=== PATIENT | female | born 1945 | race Native Hawaiian/Other Pacific Islander ===

== ENCOUNTER 2018-06-26 09:28 | Inpatient (IN) | payer MEDICARE ==
[2018-06-26] MEDS ORDERED: Dextrose 50% SYRINGE Inj (50 ml) ONE (09:35)
[2018-06-26] MEDS ORDERED: Dextrose 50% SYRINGE Inj (50 ml) IVP STA (09:43)
--- NOTE | 2018-06-26 09:44 | C.PDOC ---
History Of Present Illness 72 year old female with a history of diabetes presents to the ED for evaluation of near syncope today. The patient reports she was visiting her in the hospital when she suddenly began to feel dizzy and weak causing her to fall and hit the back of her head. Upon ED arrival the patient was hypoglycemic, 37. She denies LOC, other injuries, and any other associated symptoms. Time Seen by Provider: 06/26/18 09:29 Chief Complaint (Nursing): Dizziness/Lightheaded History Per: Patient History/Exam Limitations: no limitations Onset/Duration Of Symptoms: Hrs Current Symptoms Are (Timing): Still Present Number Of Syncopal Episodes: 1 Fall Associated With With Symptoms: Yes Recent travel outside of the [place]: No Past Medical History Reviewed: Historical Data, Nursing Documentation, Vital Signs Vital Signs: Last Vital Signs Temp Pulse 55 L 06/26/18 09:34 Resp 17 06/26/18 09:34 BP 140/55 L 06/26/18 09:34 Pulse Ox 100 06/26/18 09:34 - Medical History PMH: HTN, Hypercholesterolemia Surgical History: CABG Family History: States: Unknown Family Hx - Social History Hx Alcohol Use: No Hx Substance Use: No - Immunization History Hx Tetanus Toxoid Vaccination: No Hx Influenza Vaccination: No Hx Pneumococcal Vaccination: No Review Of Systems Except As Marked, All Systems Reviewed And Found Negative. Constitutional: Negative for: Other ((-) other injuries. ) Musculoskeletal: Positive for: Other (hit the back of the head. ) Neurological: Positive for: Weakness, Dizziness. Negative for: Other ((-) LOC. ) Physical Exam - Physical Exam Appears: Non-toxic, No Acute Distress, Other (generalized weakness. ) Skin: Warm, Dry Head: Atraumatic, Normacephalic Eye(s): bilateral: Normal Inspection Oral Mucosa: Moist Neck: Normal ROM, Trachea Midline, No Midline Cervical Tenderness, No Paracervical Tenderness Chest: Symmetrical Cardiovascular: Rhythm Regular, No Murmur Respiratory: Normal Breath Sounds, No Rales, No Rhonchi, No Wheezing Gastrointestinal/Abdominal: Normal Exam, Soft, No Tenderness Extremity: Normal ROM (x4) Neurological/Psych: Oriented x3, Normal Speech, Normal Cognition ED Course And Treatment - Laboratory Results Result Diagrams: 06/26/18 09:53 06/26/18 09:53 ECG: Interpreted By Me, Viewed By Me ECG Rhythm: Sinus Bradycardia Interpretation Of ECG: T Wave inversion at lateral leads. No ST elevations. Rate From EC O2 Sat by Pulse Oximetry: 100 (RA) Pulse Ox Interpretation: Normal - CT Scan/US CT Head Other Rad Studies (CT/US): Read By Radiologist CT/US Interpretation: FINDINGS: HEMORRHAGE: No intracranial hemorrhage. BRAIN: Good corticomedullary differentiation is seen. Proportional, diffuse expansion of the ventriculosulcal and cisternal spaces is appreciated with white matter lucency compatible with diffuse cerebral atrophy and chronic micr oangiopathy. No suspicious extra-axial fluid collection is identified and the midline brain anatomy appears grossly nonfocal as imaged. There is no mass effect throughout. VENTRICLES: Unremarkable. No hydrocephalus. CALVARIUM: No destructive bony lesion or displaced fracture identified including through the skullbase. PARANASAL SINUSES: Unremarkable as visualized. No significant inflammatory changes. MASTOID AIR CELLS: Unremarkable as visualized. No inflammatory changes. OTHER FINDINGS: None. IMPRESSION: Age-appropriate age- related degenerative change are identified without definite acute intracranial findings as discussed above. Follow-up CT or MRI are available if clinically warranted. Medical Decision Making Medical Decision Making: Initial plan: -CT Head w/o contrast. -EKG -Blood sent. -Glucose POC -Dextrose Progress/update: 11:04am: Spoke with Dr. Franco Negron who has agreed to admit the patient to telemetry. Disposition Discussed With : Tyra Negron Doctor Will See Patient In The: Hospital Counseled Patient/Family Regarding: Studies Performed, Diagnosis - Disposition Disposition: HOSPITALIZED Disposition Time: 11:08 Condition: STABLE - POA Present On Arrival: None - Clinical Impression Clinical Impression: Near syncope, Hypoglycemia, Abnormal EKG - Scribe Statement The provider has reviewed the documentation as recorded by the Scribe (Munira Ortiz) Provider Attestation: All medical record entries made by the Scribe were at my direction and personally dictated by me. I have reviewed the chart and agree that the record accurately reflects my personal performance of the history, physical exam, medical decision making, and the department course for this patient. I have also personally directed, reviewed, and agree with the discharge instructions and disposition.
[2018-06-26 09:56] LABS: BASO % 0.7 % (0.0-2.0); EOS # 0.1 K/uL (0.0-0.7); HEMOGLOBIN 11.6 g/dL (11.0-16.0); LYMPH # 2.1 K/uL (1.0-4.3); LYMPH % 33.9 % (20.0-40.0); MEAN CELL VOLUME 95.7 fL (81.0-99.0); MEAN CORPUSCULAR HEMOGLOBIN 31.6 pg (27.0-31.0); MONO # 0.6 K/uL (0.0-0.8); MONO % 9.3 % (0.0-10.0); NEUT # 3.4 K/uL (1.8-7.0); NEUT % 55.1 % (50.0-75.0); RBC 3.68 Mil/uL (3.80-5.20); RED CELL DISTRIBUTION WIDTH 14.5 % (11.5-14.5); WHITE BLOOD COUNT 6.1 K/uL (4.8-10.8)
[2018-06-26 10:09] LABS: ALB/GLOB RATIO 1.4 (1.0-2.1); ALBUMIN 4.7 g/dL (3.5-5.0); BLOOD UREA NITROGEN 29 mg/dL (7-17); CALCIUM 10.2 mg/dl (8.6-10.4); GFR NON-AFRICAN AMERICAN > 60
[2018-06-26 10:14] LABS: ALT/SGPT 16 U/L (9-52); AST/SGOT 46 U/L (14-36)
--- NOTE | 2018-06-26 11:29 | CT ---
Date of service: 06/26/2018 PROCEDURE: CT HEAD WITHOUT CONTRAST. HISTORY: trauma COMPARISON: None available. TECHNIQUE: Axial computed tomography images were obtained through the head/brain without intravenous contrast. Radiation dose: Total exam DLP = 1131.56 mGy-cm. This CT exam was performed using one or more of the following dose reduction techniques: Automated exposure control, adjustment of the mA and/or kV according to patient size, and/or use of iterative reconstruction technique. FINDINGS: HEMORRHAGE: No intracranial hemorrhage. BRAIN: Good corticomedullary differentiation is seen. Proportional, diffuse expansion of the ventriculosulcal and cisternal spaces is appreciated with white matter lucency compatible with diffuse cerebral atrophy and chronic microangiopathy. No suspicious extra-axial fluid collection is identified and the midline brain anatomy appears grossly nonfocal as imaged. There is no mass effect throughout. VENTRICLES: Unremarkable. No hydrocephalus. CALVARIUM: No destructive bony lesion or displaced fracture identified including through the skullbase. PARANASAL SINUSES: Unremarkable as visualized. No significant inflammatory changes. MASTOID AIR CELLS: Unremarkable as visualized. No inflammatory changes. OTHER FINDINGS: None. IMPRESSION: Age-appropriate age-related degenerative change are identified without definite acute intracranial findings as discussed above. Follow-up CT or MRI are available if clinically warranted.
--- NOTE | 2018-06-26 15:42 | CP.PCM.HP ---
Past Patient History - Past Social History Smoking Status: Never Smoked - CARDIAC Hx Hypercholesterolemia: Yes Hx Hypertension: Yes - ENDOCRINE/METABOLIC Hx Diabetes Mellitus Type 2: Yes - PSYCHIATRIC Hx Substance Use: No - SURGICAL HISTORY Hx Coronary Artery Bypass Graft: Yes - ANESTHESIA Hx Anesthesia: Yes Meds Allergies/Adverse Reactions: Allergies Allergy/AdvReac Type Severity Reaction Status Date / Time aspirin Allergy Verified 06/26/18 09:41 Physical Exam - Constitutional Appears: Well - Head Exam Head Exam: ATRAUMATIC, NORMAL INSPECTION, NORMOCEPHALIC - Eye Exam Eye Exam: EOMI, Normal appearance, PERRL Pupil Exam: NORMAL ACCOMODATION, PERRL - ENT Exam ENT Exam: Mucous Membranes Moist, Normal Exam - Neck Exam Neck exam: Positive for: Normal Inspection - Respiratory Exam Respiratory Exam: Decreased Breath Sounds - Cardiovascular Exam Cardiovascular Exam: REGULAR RHYTHM, +S1, +S2 - GI/Abdominal Exam GI & Abdominal Exam: Diminished Bowel Sounds, Soft - Rectal Exam Rectal Exam: Deferred Results - Vital Signs Recent Vital Signs: Last Vital Signs Temp 97.9 F 06/26/18 13:25 Pulse 62 06/26/18 13:25 Resp 20 06/26/18 13:25 BP 134/59 L 06/26/18 13:25 Pulse Ox 98 06/26/18 13:25 - Labs Result Diagrams: 06/26/18 09:53 06/26/18 09:53 Labs: Laboratory Results - last 24 hr 06/26/18 06/26/18 06/26/18 09:31 09:32 09:53 WBC 6.1 RBC 3.68 L Hgb 11.6 Hct 35.2 MCV 95.7 MCH 31.6 H MCHC 33.0 RDW 14.5 Plt Count 290 MPV 9.0 Neut % (Auto) 55.1 Lymph % (Auto) 33.9 Clarke % (Auto) 9.3 Eos % (Auto) 1.0 Baso % (Auto) 0.7 Neut # (Auto) 3.4 Lymph # (Auto) 2.1 Clarke # (Auto) 0.6 Eos # (Auto) 0.1 Baso # (Auto) 0.0 Sodium Potassium Chloride Carbon Dioxide Anion Gap BUN Creatinine Est GFR ( Amer) Est GFR (Non-Af Amer) POC Glucose (mg/dL) 37 L* 45 L Random Glucose Calcium Total Bilirubin AST ALT Alkaline Phosphatase Troponin I Total Protein Albumin Globulin Albumin/Globulin Ratio 06/26/18 06/26/18 06/26/18 09:53 09:54 12:44 WBC RBC Hgb Hct MCV MCH MCHC RDW Plt Count MPV Neut % (Auto) Lymph % (Auto) Clarke % (Auto) Eos % (Auto) Baso % (Auto) Neut # (Auto) Lymph # (Auto) Clarke # (Auto) Eos # (Auto) Baso # (Auto) Sodium 139 Potassium 4.7 Chloride 104 Carbon Dioxide 23 Anion Gap 16 BUN 29 H Creatinine 0.9 Est GFR ( Amer) > 60 Est GFR (Non-Af Amer) > 60 POC Glucose (mg/dL) 174 H 123 H Random Glucose 114 H Calcium 10.2 Total Bilirubin 0.6 AST 46 H ALT 16 Alkaline Phosphatase 28 L Troponin I 0.0160 Total Protein 8.0 Albumin 4.7 Globulin 3.3 Albumin/Globulin Ratio 1.4
[2018-06-26] MEDS ORDERED: (Novolog) Insulin Aspart, Recombinant 100 u/ml 10 ml vial SC SCH (16:30)
[2018-06-26] MEDS: Metoprolol Succinate 100 mg XL Tab PO SCH (21:45)
[2018-06-27] MEDS: Metoprolol Succinate 100 mg XL Tab PO SCH ×2 (09:39→22:28)
[2018-06-27] MEDS ORDERED: GlipiZIDE 10 mg SR Tab PO SCH (10:00)
--- NOTE | 2018-06-27 17:10 | CP.PCM.PN ---
Subjective - Date & Time of Evaluation Date of Evaluation: 06/27/18 Time of Evaluation: 11:30 - Subjective Subjective: clinically same Objective - Vital Signs/Intake and Output Vital Signs (last 24 hours): Temp Pulse Resp BP Pulse Ox 98.1 F 57 L 20 166/70 H 100 06/27/18 07:00 06/27/18 10:00 06/27/18 07:00 06/27/18 07:00 06/27/18 12:14 Intake and Output: 06/27/18 06/27/18 06:59 18:59 Intake Total 500 Balance 500 - Medications Medications: Current Medications Acetaminophen (Tylenol 325mg Tab) 650 mg PO Q6 PRN PRN Reason: Pain, moderate (4-7) Last Admin: 06/26/18 14:20 Dose: 650 mg Allopurinol (Zyloprim) 300 mg PO DAILY [facility] Last Admin: 06/27/18 09:38 Dose: Not Given Amlodipine Besylate (Norvasc) 5 mg PO DAILY [facility] Last Admin: 06/27/18 09:39 Dose: 5 mg Clopidogrel Bisulfate (Plavix) 75 mg PO DAILY [facility] Last Admin: 06/27/18 09:38 Dose: 75 mg Glipizide (Glucotrol Xl) 10 mg PO DAILY [facility] Last Admin: 06/27/18 09:38 Dose: Not Given Insulin Aspart (Novolog) 0 unit SC [facility]; Protocol Last Admin: 06/26/18 16:36 Dose: Not Given Isosorbide Mononitrate (Imdur Er) 30 mg PO DAILY [facility] Last Admin: 06/27/18 09:38 Dose: 30 mg Lisinopril (Zestril) 20 mg PO DAILY [facility] Last Admin: 06/27/18 11:03 Dose: 20 mg Metoprolol Succinate (Toprol Xl) 100 mg PO BID [facility] Last Admin: 06/27/18 09:39 Dose: Not Given Rosuvastatin Calcium (Crestor) 5 mg PO [facility] Last Admin: 06/26/18 21:45 Dose: 5 mg - Labs Labs: 06/26/18 09:53 06/26/18 09:53 - Constitutional Appears: Well - Head Exam Head Exam: ATRAUMATIC, NORMAL INSPECTION, NORMOCEPHALIC - Eye Exam Eye Exam: EOMI, Normal appearance, PERRL Pupil Exam: NORMAL ACCOMODATION, PERRL - ENT Exam ENT Exam: Mucous Membranes Moist, Normal Exam - Neck Exam Neck Exam: Full ROM, Normal Inspection. absent: Lymphadenopathy - Respiratory Exam Respiratory Exam: Decreased Breath Sounds - Cardiovascular Exam Cardiovascular Exam: REGULAR RHYTHM, +S1, +S2 - GI/Abdominal Exam GI & Abdominal Exam: Soft, Diminished Bowel Sounds - Rectal Exam Rectal Exam: Deferred
[2018-06-27] MEDS: (Novolog) Insulin Aspart, Recombinant 100 u/ml 10 ml vial SC SCH (22:22)
--- NOTE | 2018-06-28 01:09 | CON ---
DATE: 06/27/2018 NEUROLOGY CONSULTATION REASON FOR CONSULTATION: Syncopal episode. HISTORY OF PRESENT ILLNESS: The patient is a 72-year-old lady with past medical history of open heart surgery, thyroidectomy, diabetes mellitus, hypertension. The patient was admitted because of syncopal episode. The patient states that while she was visiting her and sitting on the chair, suddenly she felt dizzy and then she lost her consciousness to briefly and immediately she woke up without confusion, no jerky movement. No seizures. No urinary incontinence. The patient state that she was taken to the emergency room. She was whole time awake, alert, no confusion. At emergency arrival, the patient's blood sugar was 37. The patient basically is not sure if she lost her consciousness 100%. The patient state that I was just dizzy, I felt that I am going to lose my consciousness. The patient denies any previous history of loss of consciousness or seizures, head trauma, although the patient had history of CVA in the past associated with slurred speech and right-sided weakness. PAST MEDICAL HISTORY: Hyperlipidemia, hypertension, diabetes mellitus, status post CABG, coronary artery disease, and thyroidectomy. SOCIAL HISTORY: Nonsmoker, ethanol or drug abuser. MEDICATIONS: Glipizide, isosorbide, amlodipine, insulin, clopidogrel, metoprolol, acetaminophen, rosuvastatin, lisinopril, and allopurinol. REVIEW OF SYSTEMS: As per H and P and ER notes, reviewed. PHYSICAL EXAMINATION: VITAL SIGNS: Blood pressure 140/55, pulse 55, respirations 17, and pulse ox 100%. MENTAL STATUS: The patient is alert, awake, and oriented x3. Normal naming, repetition, and comprehension. No nausea, no apraxia. No right or left confusion. CRANIAL NERVES: Pupils are 2 mm bilaterally reactive. No facial palsy. There is minimal asymmetry of nasolabial fold. V1 to V3 intact. No field defect. There is a positive gaze nystagmus on horizontal gaze, at the end gaze. Accessory nerve intact. Tongue midline. MOTOR: Normal tone in upper and lower extremities. No pronator drift. Upper extremities, right deltoid, elbow and jackspooler, 5-/5, left deltoid, elbow and jackspooler, 5/5. Lower extremities, right hip flexion 5-/5, knee flexion, knee extension, and ankle 5/5 bilaterally. Deep tendon reflexes 2 in upper and lower extremities, 1 at the ankles. Plantars are flexion. SENSORY: Pinprick, light touch symmetric. Coordination, [id number] intact. IMAGING: I have reviewed the CAT scan consistent with left mid cerebral artery infarct involving the frontoparietal region, subcortical area, and periventricular in addition to white matter disease bilaterally. IMPRESSION AND PLAN: The patient's near syncopal episode is most likely secondary to hypoglycemia. The patient's blood sugar was 37 in the emergency room, probably it was lower than that when the event happened. The patient had a CAT scan, I have reviewed the CAT scan, CAT scan did not reveal no acute findings. The patient is examined, there is some residual from previous cerebrovascular accident, minimal slurred speech, which is at her baseline and minimal residual deficit on the right side, otherwise patient's exam is within normal limits. The patient want to go home and does not want to stay in the hospital. I have strongly recommended the patient go to her neurologist, Dr. Moreno to have a carotid Doppler and electroencephalogram as an outpatient. Neuro-santana, no further workup recommended. The patient can be discharged and followed by her neurologist in the next two days. Above discussed with the patient and the daughter at bedside. Thank you for consultation. Devang Tapia MD [facility]
--- NOTE | 2018-06-28 07:22 | CP.PCM.CON ---
History of Present Illness - History of Present Illness History of Present Illness: Consultation for evaluation of abnormal EKG with an episode of syncope HPI: 80-year-old female with past medical history significant for coronary artery disease status post CABG 15 years ago at [facility] who follows as o utpatient with Dr. Florentino Avery had past history of angioplasty and stenting who was visiting her on [address] [place] who is being treated for leukemia when she started to get dizzy and had a near syncopal episode blood sugar was noted to be low and symptoms were attributable to possible hypoglycemia because of significant cardiac history and EKG changes showing significant ST depressions anterolaterally she was admitted for overnight observation she had a abnormal stress test by Dr. Juarez and has been scheduled to undergo a cardiac catheterization at [facility] by Dr. Howard I had asked the patient if she is okay for me to evaluate the patient and she agreed for me to further evaluate as per the history she had symptoms are most likely attributable to hypoglycemia patient can be discharged and follow-up outpatient for her current cardiovascular care. Review of Systems - Review of Systems Systems not reviewed;Unavailable: Acuity of Condition - Constitutional Constitutional: As Per HPI - EENT Eyes: As Per HPI Ears: As Per HPI Nose/Mouth/Throat: As Per HPI - Breasts Breasts: As Per HPI - Cardiovascular Cardiovascular: As Per HPI - Respiratory Respiratory: As Per HPI - Gastrointestinal Gastrointestinal: As Per HPI - Genitourinary Genitourinary: As Per HPI - Reproductive: Female Reproductive:Female: As Per HPI - Menstruation Menstruation: As Per HPI - Musculoskeletal Musculoskeletal: As Per HPI - Integumentary Integumentary: As Per HPI - Neurological Neurological: As Per HPI - Psychiatric Psychiatric: As Per HPI - Endocrine Endocrine: As Per HPI - Hematologic/Lymphatic Hematologic: As Per HPI Past Patient History - Past Social History Smoking Status: Never Smoked - CARDIAC Hx Hypercholesterolemia: Yes Hx Hypertension: Yes - ENDOCRINE/METABOLIC Hx Diabetes Mellitus Type 2: Yes - PSYCHIATRIC Hx Substance Use: No - SURGICAL HISTORY Hx Coronary Artery Bypass Graft: Yes - ANESTHESIA Hx Anesthesia: Yes Meds Allergies/Adverse Reactions: Allergies Allergy/AdvReac Type Severity Reaction Status Date / Time aspirin Allergy Verified 06/26/18 09:41 - Medications Medications: Current Medications Acetaminophen (Tylenol 325mg Tab) 650 mg PO Q6 PRN PRN Reason: Pain, moderate (4-7) Last Admin: 06/28/18 02:49 Dose: 650 mg Allopurinol (Zyloprim) 300 mg PO DAILY [facility] Last Admin: 06/27/18 09:38 Dose: Not Given Amlodipine Besylate (Norvasc) 5 mg PO DAILY [facility] Last Admin: 06/27/18 09:39 Dose: 5 mg Clopidogrel Bisulfate (Plavix) 75 mg PO DAILY [facility] Last Admin: 06/27/18 09:38 Dose: 75 mg Glipizide (Glucotrol Xl) 10 mg PO DAILY [facility] Last Admin: 06/27/18 09:38 Dose: Not Given Insulin Aspart (Novolog) 0 unit SC [facility]; Protocol Last Admin: 06/26/18 16:36 Dose: Not Given Insulin Aspart (Novolog) 0 unit SC [facility]; Protocol Last Admin: 06/27/18 22:22 Dose: Not Given Isosorbide Mononitrate (Imdur Er) 30 mg PO DAILY [facility] Last Admin: 06/27/18 09:38 Dose: 30 mg Lisinopril (Zestril) 20 mg PO DAILY [facility] Last Admin: 06/27/18 11:03 Dose: 20 mg Metoprolol Succinate (Toprol Xl) 100 mg PO BID [facility] Last Admin: 06/27/18 22:28 Dose: 100 mg Rosuvastatin Calcium (Crestor) 5 mg PO [facility] Last Admin: 06/27/18 22:21 Dose: 5 mg Physical Exam - Constitutional Appears: Well - Head Exam Head Exam: ATRAUMATIC, NORMAL INSPECTION, NORMOCEPHALIC - Eye Exam Eye Exam: EOMI, Normal appearance, PERRL Pupil Exam: NORMAL ACCOMODATION, PERRL - ENT Exam ENT Exam: Mucous Membranes Moist, Normal Exam - Neck Exam Neck exam: Positive for: Normal Inspection - Respiratory Exam Respiratory Exam: Clear to Auscultation Bilateral, NORMAL BREATHING PATTERN - Cardiovascular Exam Cardiovascular Exam: REGULAR RHYTHM - GI/Abdominal Exam GI & Abdominal Exam: Normal Bowel Sounds, Soft. absent: Tenderness - Extremities Exam Extremities exam: Positive for: normal inspection - Back Exam Back exam: NORMAL INSPECTION - Neurological Exam Neurological exam: Alert, CN II-XII Intact, Normal Gait, Oriented x3, Reflexes Normal - Psychiatric Exam Psychiatric exam: Normal Affect, Normal Mood - Skin Skin Exam: Dry, Intact, Normal Color, Warm Results - Vital Signs Recent Vital Signs: Last Vital Signs Temp 98.5 F 06/27/18 23:40 Pulse 64 06/27/18 23:40 Resp 20 06/27/18 23:40 BP 135/66 06/27/18 23:40 Pulse Ox 97 06/27/18 23:40 - Labs Result Diagrams: 06/26/18 09:53 06/26/18 09:53 Labs: Laboratory Results - last 24 hr 06/27/18 06/27/18 06/27/18 12:14 17:24 21:40 POC Glucose (mg/dL) 140 H 277 H 191 H 06/28/18 06:31 POC Glucose (mg/dL) 139 H Assessment & Plan (1) Near syncope Assessment and Plan: Echo IVF hydration orthostatics etiology ? 2' to hypoglycemia Status: Acute (2) Abnormal EKG Assessment and Plan: recent stress test abnormal will need cardiac catheterization as per primary medical health researcher ( and ) to be done at [facility] keep pt on asa, bb, statins for cardioprotection add plavix Status: Acute (3) Hypoglycemia Status: Acute
[2018-06-28] MEDS: (Novolog) Insulin Aspart, Recombinant 100 u/ml 10 ml vial SC SCH ×4 (08:09→21:51)
--- NOTE | 2018-06-28 09:22 | CARD ---
APPROVED REPORT Date of service: 06/26/2018 EKG Measurement Heart [id number] <Conclusion> Sinus bradycardia ST & T wave abnormality, consider inferior ischemia ST & T wave abnormality, consider anterolateral ischemia Abnormal ECG
[2018-06-28] MEDS: Enoxaparin 40 mg Syringe SC SCH ×2 (10:27→12:25)
[2018-06-28] MEDS: Metoprolol Succinate 100 mg XL Tab PO SCH ×2 (10:28→21:50)
--- NOTE | 2018-06-28 11:20 | PN ---
DATE: 06/28/2018 NEUROLOGICAL PROBLEM: Near syncopal attack. PHYSICAL EXAMINATION: VITAL SIGNS: Blood pressure 135/66, mean arterial pressure 89, respiratory rate 18, temperature 98.5. The patient was seen and evaluated by Dr. Tapia. His consultation is greatly appreciated. The current examination which is unchanged to compare with the previous examination of the other neurologist. Mild right hemiparesis. Her mentation is normal. All her episodes are probably related to her hypoglycemic event. From neurological point of view, no further workup is needed. The patient can be followed by her own neurologist following discharge. Dax Reis MD
--- NOTE | 2018-06-28 13:37 | VASCLAB ---
Date of service: 06/28/2018 PROCEDURE: Carotid Duplex Exam. HISTORY: Syncope COMPARISON: None available. TECHNIQUE: Grayscale and duplex Doppler evaluation of the cervical carotid and vertebral arteries were performed. The common carotid, carotid bifurcations and cervical Internal Carotid Artery (ICA) and proximal External Carotid Artery (ECA) were evaluated. The vertebral arteries were evaluated for gross patency and flow direction. Report prepared by SEVERIANO Barlow FINDINGS: RIGHT CAROTID ARTERIES: 1. Common Carotid Artery: No significant focal plaque formation of the right common carotid artery. Maximum Peak Systolic velocity: 72 cm/sec: End-diastolic velocity 14 cm/sec. 2. Carotid Bifurcation: Calcific plaque formation. Maximum Peak Systolic velocity: 72 cm/sec: End-diastolic velocity 16 cm/sec. 3. Internal Carotid Artery: Plaque description: Calcific 3.1. Proximal Segment: Peak systolic velocity 108 cm/sec: End-diastolic velocity 31 cm/sec - % stenosis 0-15% 3.2. Middle Segment: Peak systolic velocity 67 cm/sec: End-diastolic velocity 14 cm/sec - % stenosis 0-15% 3.3. Distal Segment: Peak systolic velocity 106 cm/sec: End-diastolic velocity 37 cm/sec - % stenosis 0-15% 4. External Carotid Artery: No significant focal plaque formation. Peak systolic velocity 96 cm/sec 5. ICA/CCA Ratio: 2.1 LEFT CAROTID ARTERIES: 1. Common Carotid Artery: No significant focal plaque formation of the left common carotid artery. Maximum Peak Systolic velocity: 77 cm/sec: End-diastolic velocity 18 cm/sec. 2. Carotid Bifurcation: Calcific plaque formation. Maximum Peak Systolic velocity: 228 cm/sec: End-diastolic velocity 38 cm/sec. 3. Internal Carotid Artery: Plaque description: Calcific 3.1. Proximal Segment: Peak systolic velocity 135 cm/sec: End-diastolic velocity 21 cm/sec - % stenosis 0-15% 3.2. Middle Segment: Peak systolic velocity 72 cm/sec: End-diastolic velocity 17 cm/sec - % stenosis 0-15% 3.3. Distal Segment: Peak systolic velocity 117 cm/sec: End-diastolic velocity 31 cm/sec - % stenosis 0-15% 4. External Carotid Artery: No significant focal plaque formation. Peak systolic velocity 166 cm/sec 5. ICA/CCA Ratio: 3.2 VERTEBRAL ARTERIES: 1. Right Vertebral Artery: The right vertebral artery flow direction is antegrade. 2. Left Vertebral Artery: The left vertebral artery flow direction is antegrade. OTHER FINDINGS: 1. Right Brachial Blood pressure: 130/50 mmHg. 2. Left Brachial Blood pressure: 140/60 mmHg. IMPRESSION: RIGHT: Duplex scan does not suggest hemodynamically significant stenosis of the right extracranial carotid arteries. LEFT: Increased velocities noted at the left carotid bulb, suggesting 50-60% stenosis. Findings were reported to Kelsi (6 tower), at 11:10 a.m.
[2018-06-28 16:21] VITALS: RESP 20
--- NOTE | 2018-06-28 19:11 | CP.PCM.PN ---
Subjective - Date & Time of Evaluation Date of Evaluation: 06/28/18 Time of Evaluation: 12:00 - Subjective Subjective: clinically same Objective - Vital Signs/Intake and Output Vital Signs (last 24 hours): Temp Pulse Resp BP Pulse Ox 98.4 F 59 L 20 117/66 97 06/28/18 16:00 06/28/18 16:00 06/28/18 16:00 06/28/18 16:00 06/28/18 16:35 Intake and Output: 06/28/18 06/29/18 18:59 06:59 Intake Total 600 Balance 600 - Medications Medications: Current Medications Acetaminophen (Tylenol 325mg Tab) 650 mg PO Q6 PRN PRN Reason: Pain, moderate (4-7) Last Admin: 06/28/18 10:28 Dose: 650 mg Allopurinol (Zyloprim) 300 mg PO DAILY [facility] Last Admin: 06/28/18 10:28 Dose: 300 mg Amlodipine Besylate (Norvasc) 5 mg PO DAILY [facility] Last Admin: 06/28/18 10:28 Dose: 5 mg Clopidogrel Bisulfate (Plavix) 75 mg PO DAILY [facility] Last Admin: 06/28/18 10:28 Dose: 75 mg Enoxaparin Sodium (Lovenox) 40 mg SC DAILY [facility] Last Admin: 06/28/18 12:25 Dose: Not Given Glipizide (Glucotrol Xl) 10 mg PO DAILY [facility] Last Admin: 06/27/18 09:38 Dose: Not Given Insulin Aspart (Novolog) 0 unit SC [facility]; Protocol Last Admin: 06/26/18 16:36 Dose: Not Given Insulin Aspart (Novolog) 0 unit SC [facility]; Protocol Last Admin: 06/28/18 17:49 Dose: Not Given Isosorbide Mononitrate (Imdur Er) 30 mg PO DAILY [facility] Last Admin: 06/28/18 10:27 Dose: 30 mg Lisinopril (Zestril) 20 mg PO DAILY [facility] Last Admin: 06/28/18 10:28 Dose: 20 mg Metoprolol Succinate (Toprol Xl) 100 mg PO BID [facility] Last Admin: 06/28/18 10:28 Dose: 100 mg Rosuvastatin Calcium (Crestor) 5 mg PO HS [facility] Last Admin: 06/27/18 22:21 Dose: 5 mg - Labs Labs: 06/26/18 09:53 06/26/18 09:53 - Constitutional Appears: Well - Head Exam Head Exam: ATRAUMATIC, NORMAL INSPECTION, NORMOCEPHALIC - Eye Exam Eye Exam: EOMI, Normal appearance, PERRL Pupil Exam: NORMAL ACCOMODATION, PERRL - ENT Exam ENT Exam: Mucous Membranes Moist, Normal Exam - Neck Exam Neck Exam: Full ROM, Normal Inspection. absent: Lymphadenopathy - Respiratory Exam Respiratory Exam: Decreased Breath Sounds - Cardiovascular Exam Cardiovascular Exam: REGULAR RHYTHM, +S1, +S2 - GI/Abdominal Exam GI & Abdominal Exam: Soft, Diminished Bowel Sounds - Rectal Exam Rectal Exam: Deferred
[2018-06-28] MEDS ORDERED: Influenza Vaccine 60 mcg/0.5 mL SYR (4YR UP) IM ONE (19:37)
[2018-06-28] MEDS ORDERED: Pneumococcal 23-Valent Vaccine IM ONE (19:37)
[2018-06-29] MEDS ORDERED: Midazolam 2 MG/2 ML VIAL ONE (07:27)
[2018-06-29 07:30] LABS: HEMOGLOBIN 12.5 g/dL (11.0-16.0); MEAN CORPUSCULAR HEMOGLOBIN 31.5 pg (27.0-31.0); MEAN CORPUSCULAR HGB CONC 33.5 g/dL (33.0-37.0); MEAN PLATELET VOLUME 8.9 fL (7.2-11.7); RBC 3.97 Mil/uL (3.80-5.20); RED CELL DISTRIBUTION WIDTH 14.2 % (11.5-14.5)
[2018-06-29 07:32] LABS: INR 1.1; PROTHROMBIN TIME 11.5 SECONDS (9.7-12.2)
[2018-06-29] MEDS ORDERED: Lidocaine Hydrochloride 5 ML INJ ONE (07:36)
[2018-06-29 07:42] LABS: BLOOD UREA NITROGEN 28 mg/dL (7-17); CALCIUM 9.8 mg/dl (8.6-10.4); GFR NON-AFRICAN AMERICAN > 60
--- NOTE | 2018-06-29 07:42 | EEG ---
DATE: 06/28/2018 This is a 16-channel electroencephalogram of awake and a drowsy adult. During the study, photic stimulation was performed. Hyperventilation was not performed. The resting electroencephalogram consists of 20 to 30 microvolt of low amplitude 6 to 7 Hz high theta activity seen at the parietal and occipital leads. Anterior fast activity superimposed with 2 to 3 Hz with delta activity seen. Intermittent movement artifact contaminated the background rhythm. The photic stimulation did not evoke driving response noted at 2 to 20 Hz. At times, the patient showed normal background activities of alpha predominance at the parietal and occipital leads. The photic stimulation did not evoke driving response noted at 2 to 20 Hz. IMPRESSION: This is a normal electroencephalogram of awake and a drowsy adult. During the study, neither electroencephalographic paroxysmal activities nor focal slowing noted. Dax Reis MD
[2018-06-29] MEDS ORDERED: Iohexol 350mgl/ml 50 ML ONE (07:59)
[2018-06-29] MEDS: (Novolog) Insulin Aspart, Recombinant 100 u/ml 10 ml vial SC SCH ×4 (08:22→22:19)
[2018-06-29] MEDS ORDERED: Sodium Chloride 0.9% 1,000 ML IV SCH (08:30)
[2018-06-29] MEDS: Enoxaparin 40 mg Syringe SC SCH (09:30)
[2018-06-29] MEDS: Metoprolol Succinate 100 mg XL Tab PO SCH ×2 (10:31→18:04)
--- NOTE | 2018-06-29 13:12 | CP.PCM.PN ---
Subjective - Date & Time of Evaluation Date of Evaluation: 06/29/18 Time of Evaluation: 13:04 - Subjective Subjective: Patient s/p Cath Indications: Exertional dyspnea, Near syncopial episode, Abnormal stress test, Hx of CVA, CABG x 3, s/p Multiple stents, PAD s/p Right Vascular Bypass, Uncontrolled DM. HTN amd dyslipidemia L Main: 99% LAD: Mid 100% L Cx: Prox 100% RCA: 100% EF: 60%, EDP 27 Dependant on grafts. Patent grafts. Diffuse small vessel disease Medical management, diet and walking program Objective - Vital Signs/Intake and Output Vital Signs (last 24 hours): Temp Pulse Resp BP Pulse Ox 97.2 F L 61 20 130/77 97 06/29/18 10:43 06/29/18 12:50 06/29/18 10:43 06/29/18 10:43 06/29/18 06:45 Intake and Output: 06/29/18 06/29/18 06:59 18:59 Intake Total 0 Balance 0 - Medications Medications: Current Medications Acetaminophen (Tylenol 325mg Tab) 650 mg PO Q6 PRN PRN Reason: Pain, moderate (4-7) Last Admin: 06/28/18 21:53 Dose: 650 mg Allopurinol (Zyloprim) 300 mg PO DAILY [facility] Last Admin: 06/29/18 10:31 Dose: 300 mg Amlodipine Besylate (Norvasc) 5 mg PO DAILY [facility] Last Admin: 06/29/18 10:31 Dose: 5 mg Clopidogrel Bisulfate (Plavix) 75 mg PO DAILY [facility] Last Admin: 06/29/18 10:31 Dose: 75 mg Enoxaparin Sodium (Lovenox) 40 mg SC DAILY [facility] Last Admin: 06/29/18 09:30 Dose: Not Given Glipizide (Glucotrol Xl) 10 mg PO DAILY [facility] [place] Last Admin: 06/27/18 09:38 Dose: Not Given Sodium Chloride (Sodium Chloride 0.9%) 1,000 mls @ 50 mls/hr IV .Q20H [facility] Stop: 06/29/18 14:31 Last Admin: 06/29/18 11:49 Dose: 50 mls/hr Insulin Aspart (Novolog) 0 unit SC [facility]; Protocol Last Admin: 06/26/18 16:36 Dose: Not Given Insulin Aspart (Novolog) 0 unit SC [facility]; Protocol Last Admin: 06/29/18 12:30 Dose: 2 unit Isosorbide Mononitrate (Imdur Er) 30 mg PO DAILY [facility] [place] Last Admin: 06/29/18 10:31 Dose: 30 mg Lisinopril (Zestril) 20 mg PO DAILY [facility] [place] Last Admin: 06/29/18 10:31 Dose: 20 mg Metoprolol Succinate (Toprol Xl) 100 mg PO BID [facility] [place] Last Admin: 06/29/18 10:31 Dose: 100 mg Rosuvastatin Calcium (Crestor) 5 mg PO HS [facility] [place] Last Admin: 06/28/18 21:51 Dose: 5 mg - Labs Labs: 06/29/18 07:17 06/29/18 07:17 PT 11.5 SECONDS (9.7-12.2) 06/29/18 07:17 INR 1.1 06/29/18 07:17
--- NOTE | 2018-06-29 14:55 | CP.PCM.PN ---
Subjective - Date & Time of Evaluation Date of Evaluation: 06/29/18 Time of Evaluation: 11:30 - Subjective Subjective: clinically same Objective - Vital Signs/Intake and Output Vital Signs (last 24 hours): Temp Pulse Resp BP Pulse Ox 97.2 F L 61 20 130/77 97 06/29/18 10:43 06/29/18 12:50 06/29/18 10:43 06/29/18 10:43 06/29/18 06:45 Intake and Output: 06/29/18 06/29/18 06:59 18:59 Intake Total 0 705 Output Total 600 Balance 0 105 - Medications Medications: Current Medications Acetaminophen (Tylenol 325mg Tab) 650 mg PO Q6 PRN PRN Reason: Pain, moderate (4-7) Last Admin: 06/28/18 21:53 Dose: 650 mg Allopurinol (Zyloprim) 300 mg PO DAILY [facility] Last Admin: 06/29/18 10:31 Dose: 300 mg Amlodipine Besylate (Norvasc) 5 mg PO DAILY [facility] Last Admin: 06/29/18 10:31 Dose: 5 mg Clopidogrel Bisulfate (Plavix) 75 mg PO DAILY [facility] Last Admin: 06/29/18 10:31 Dose: 75 mg Enoxaparin Sodium (Lovenox) 40 mg SC DAILY [facility] Last Admin: 06/29/18 09:30 Dose: Not Given Glipizide (Glucotrol Xl) 10 mg PO DAILY [facility] Last Admin: 06/27/18 09:38 Dose: Not Given Insulin Aspart (Novolog) 0 unit SC [facility]; Protocol Last Admin: 06/26/18 16:36 Dose: Not Given Insulin Aspart (Novolog) 0 unit SC [facility]; Protocol Last Admin: 06/29/18 12:30 Dose: 2 unit Isosorbide Mononitrate (Imdur Er) 30 mg PO DAILY [facility] Last Admin: 06/29/18 10:31 Dose: 30 mg Lisinopril (Zestril) 20 mg PO DAILY [facility] Last Admin: 06/29/18 10:31 Dose: 20 mg Metoprolol Succinate (Toprol Xl) 100 mg PO BID [facility] Last Admin: 06/29/18 10:31 Dose: 100 mg Rosuvastatin Calcium (Crestor) 5 mg PO [facility] Last Admin: 06/28/18 21:51 Dose: 5 mg - Labs Labs: 06/29/18 07:17 06/29/18 07:17 PT 11.5 SECONDS (9.7-12.2) 06/29/18 07:17 INR 1.1 06/29/18 07:17
--- NOTE | 2018-06-29 17:25 | CARD ---
APPROVED REPORT Date of service: 06/29/2018 EXAM: Two-dimensional and M-mode echocardiogram with Doppler and color Doppler. Other Information Quality : GoodRhythm : INDICATION Abnormal EKG/Arrhythmia Dyspnea Syncope RISK FACTORS Hypertension 2D DIMENSIONS IVSd0.9 (0.7-1.1cm)LVDd4.2 (3.9-5.9cm) PWd1.1 (0.7-1.1cm)LA Fwigzd68 (18-58mL) LVDs2.7 (2.5-4.0cm)FS (%) 35.6 % LVEF (%)65.5 (>50%)LVEF (Meneses's)58.70 % M-Mode DIMENSIONS Left Atrium (MM)4.08 (2.5-4.0cm)IVSd0.96 (0.7-1.1cm) Aortic Root3.01 (2.2-3.7cm)LVDd5.15 (4.0-5.6cm) Aortic Cusp Exc.1.77 (1.5-2.0cm)PWd0.69 (0.7-1.1cm) FS (%) 28 %LVDs3.69 (2.0-3.8cm) LVEF (%)54 (>50%) Mitral Valve MV E Mqsccqaq05.5cm/sMV A Pqbzrgtf56.0cm/sE/A ratio0.7 RADD990.51 cm/s TDI Lateral E' Peak V6.48cm/sMedial E' Peak V3.87cm/sE/Lateral E'7.9 E/Medial E'13.3 Tricuspid Valve TR Peak Nqoihqdy636xt/sTR Peak Gr.[id number] LEFT VENTRICLE There is normal left ventricular wall thickness. The left ventricular systolic function is normal. The left ventricular ejection fraction is within the normal range. There is mild hypokinesis in the basal anteroseptal wall suggestive of coronary heart disease. Transmitral Doppler flow pattern is Grade I-abnormal relaxation pattern. Normal left atrial pressure. RIGHT VENTRICLE The right ventricle is normal size. The right ventricular systolic function is normal. ATRIA The left atrium is borderline to mildly dilated. The right atrium size is normal. AORTIC VALVE The aortic valve is normal in structure. No aortic regurgitation is present. There is no aortic valvular stenosis. MITRAL VALVE The mitral valve is normal in structure. Mitral annular calcification is mild. Mitral regurgitation is mild. TRICUSPID VALVE The tricuspid valve is normal in structure. There is trace tricuspid regurgitation. PULMONIC VALVE The pulmonary valve is normal in structure. There is trace to mild pulmonic valvular regurgitation. GREAT VESSELS The aortic root is normal in size. The aortic root displays mild to moderate sclerocalcific changes. The IVC is normal in size and collapses >50% with inspiration. PERICARDIAL EFFUSION There is no pericardial effusion. <Conclusion> The left ventricular systolic function is normal. There is mild hypokinesis in the basal anteroseptal wall suggestive of coronary heart disease. Grade I diastolic dysfunction-abnormal relaxation pattern. Normal left atrial pressure. The right ventricular systolic function is normal. The left atrium is borderline to mildly dilated. Mild mitral regurgitation. Mitral annular calcification. There is no pericardial effusion.
[2018-06-30 07:53] VITALS: BP 130/64; TEMP 97.8; O2SAT 94
[2018-06-30] MEDS: (Novolog) Insulin Aspart, Recombinant 100 u/ml 10 ml vial SC SCH ×2 (08:11→13:06)
[2018-06-30] MEDS: Metoprolol Succinate 100 mg XL Tab PO SCH (09:52)
[2018-06-30] MEDS: Enoxaparin 40 mg Syringe SC SCH (09:53)
[2018-06-30 13:35] VITALS: PULSE 60
--- NOTE | 2018-06-30 22:09 | CP.PCM.PN ---
Subjective - Date & Time of Evaluation Date of Evaluation: 06/30/18 Time of Evaluation: 09:10 - Subjective Subjective: 72 year old female with a history of diabetes presents to the ED for evaluation of near syncope today. The patient reports she was visiting her in the hospital when she suddenly began to feel dizzy and weak causing her to fall and hit the back of her head. Upon ED arrival the patient was hypoglycemic, 37. She denies LOC, other injuries, and any other associated symptoms. Chief Complaint (Nursing): Dizziness/Lightheaded History Per: Patient History/Exam Limitations: no limitations Onset/Duration Of Symptoms: Hrs Current Symptoms Are (Timing): Still Present Number Of Syncopal Episodes: 1 Fall Associated With With Symptoms: Yes Recent travel outside of the [place]: No Review Of Systems Except As Marked, All Systems Reviewed And Found Negative. Constitutional: Negative for: Other ((-) other injuries. ) Musculoskeletal: Positive for: Other (hit the back of the head. ) Neurological: Positive for: Weakness, Dizziness. Negative for: Other ((-) LOC. ) Physical Exam - Physical Exam Appears: Non-toxic, No Acute Distress, Other (generalized weakness. ) Skin: Warm, Dry Head: Atraumatic, Normacephalic Eye(s): bilateral: Normal Inspection Oral Mucosa: Moist Neck: Normal ROM, Trachea Midline, No Midline Cervical Tenderness, No Paracervical Tenderness Chest: Symmetrical Cardiovascular: Rhythm Regular, No Murmur Respiratory: Normal Breath Sounds, No Rales, No Rhonchi, No Wheezing Gastrointestinal/Abdominal: Normal Exam, Soft, No Tenderness Extremity: Normal ROM (x4) Neurological/Psych: Oriented x3, Normal Speech, Normal Cognition Objective - Vital Signs/Intake and Output Vital Signs (last 24 hours): Temp Pulse Resp BP Pulse Ox 97.8 F 60 20 130/64 94 L 06/30/18 07:05 06/30/18 13:18 06/30/18 07:05 06/30/18 07:05 06/30/18 13:18 - Labs Labs: 06/29/18 07:17 06/29/18 07:17 PT 11.5 SECONDS (9.7-12.2) 06/29/18 07:17 INR 1.1 06/29/18 07:17 Assessment and Plan - Assessment and Plan (Free Text) Assessment: Exertional dyspnea, Near syncopial episode, Abnormal stress test, Hx of CVA, CABG x 3, s/p Multiple stents, PAD s/p Right Vascular Bypass, Uncontrolled DM. HTN amd dyslipidemia L Main: 99% LAD: Mid 100% L Cx: Prox 100% RCA: 100% EF: 60%, EDP 27 Dependant on grafts. Patent grafts. Diffuse small vessel disease Medical management, diet and walking program
--- NOTE | 2018-07-01 09:43 | PCM.HF ---
Heart Failure Core Measure - Heart Failure Ejection Fraction: 40 % or Greater ENRIQUETA Inhibitor Prescribed: Yes Beta-Juan Prescribed: Metoprolol Succinate Angiotensin II Receptor Juan Prescribed: No Contraindication/Reason for not providing: on arb AnticoagulationTherapy for Atrial Fibrillation/Atrialflutter: No Contraindication/Reason for not providing: no hx of a fib Aldosterone Antagonist Prescribed: No Contraindication/Reason for not providing: ef>45 Hydralazine Nitrate Prescribed: No Contraindication/Reason for not providing: ef>45/ on calcium channel Implantable Cardioverter Defibrillator Therapy: No Contraindication/Reason for not providing: ef>45 Cardiac Resynchronization Therapy Prescribed: No Contraindication/Reason for not providing: ef>45 - Follow up Will be discharged to: Home Follow Up Date (must be within 7 days from discharge): 07/05/18 Follow Up Time: 15:00
--- NOTE | 2018-07-05 02:12 | CARDCATH ---
PROCEDURE DATE: 06/29/2018 PROCEDURES: 1. Left heart catheterization. 2. Coronary angiogram. 3. Left internal mammary artery graft angiogram. 4. Saphenous vein graft angiogram. REFERRING PHYSICIAN: Ban Ornelas MD PERFORMING PHYSICIAN: Daniel Howard MD CLINICAL INDICATIONS: 1. Syncope. 2. History of coronary artery disease, status post CABG. 3. History of coronary artery disease, status post stents. 4. Hypertension. 5. Diabetes. 6. Hyperlipidemia. DESCRIPTION OF PROCEDURE: After informed consent, the patient was prepped and draped in the usual sterile fashion. Lidocaine 2% was given in the right groin for local anesthesia. Using micropuncture technique, 6-Indian sheath was introduced into left common femoral artery. A JL4 6-Indian diagnostic catheter was engaged into left main coronary artery. Contrast was injected, and left coronary angiogram was done. Then, the catheter was exchanged to JR4 6-Indian diagnostic catheter. The catheter was inserted into left ventricle. LVEDP measured. Contrast was injected, and left ventricular angiogram was done. Then, the catheter was pulled back across the aortic valve. The gradient across the aortic valve was measured. Then, same catheter was engaged into right coronary artery. Contrast was injected, and right coronary angiogram was done. Then, the RENAE catheter was engaged into RENAE graft. Contrast was injected, and RENAE angiogram was done. Then, AR1 catheter was engaged into saphenous vein graft. Contrast was injected, and saphenous vein graft angiogram was done. Aortic root angiogram was done to confirm the finding of the additional grafts. The patient tolerated the procedure well. Postprocedure, Mynx closure device was deployed in the left groin with excellent hemostasis. FINDINGS: 1. Distal left main coronary artery has a 99% occlusion. 2. LAD is severely diseased. Proximal to mid LAD diffuse instant 99% stenosis. 3. Left circumflex also has a diffuse disease. Left circumflex has a 99-100% occlusion. 4. Right coronary artery has 100% occlusion in the mid region. 5. RENAE jump graft to LAD and diagonal arteries is patent. 6. SVG to PDA graft is patent. 7. LV ejection fraction is approximately 60%. Mild apical hypokinesis. ADP is 22. No gradient across the aortic valve. IMPRESSION: 1. Severe coronary artery disease as described above. 2. Left internal mammary artery graft and saphenous vein graft are patent. 3. Left ventricular systolic function is normal. PLAN: Recommend aggressive medical management including risk factor modification. Daniel Howard MD
== END 2018-06-30 14:37 | disposition home or self-care (01) | DRG 638 ==
LOC: C.ER 09:28 → C.9E 11:06 → INTOOBSV 11:06 → C.6T 12:41 → OBSVTOIN 06-28 17:44
PROVIDERS: ADMIT Internal Medicine Nephrology; ATTEND Internal Medicine Nephrology
PROC: 4A023N7 Measurement of Cardiac Sampling and Pressure, Left Heart, Percutaneous Approach (ICD-10-PCS; principal; 2018-06-29)
PROC: B2151ZZ Fluoroscopy of Left Heart using Low Osmolar Contrast (ICD-10-PCS; 2018-06-29)
PROC: B2111ZZ Fluoroscopy of Multiple Coronary Arteries using Low Osmolar Contrast (ICD-10-PCS; 2018-06-29)
PROC: B2121ZZ Fluoroscopy of Single Coronary Artery Bypass Graft using Low Osmolar Contrast (ICD-10-PCS; 2018-06-29)
PROC: B2181ZZ Fluoroscopy of Left Internal Mammary Bypass Graft using Low Osmolar Contrast (ICD-10-PCS; 2018-06-29)
DX: E11.649 Type 2 diabetes mellitus with hypoglycemia without coma (principal); I25.10 Atherosclerotic heart disease of native coronary artery without angina pectoris; R55 Syncope and collapse; I10 Essential (primary) hypertension; I69.351 Hemiplegia and hemiparesis following cerebral infarction affecting right dominant side; E89.0 Postprocedural hypothyroidism; E11.51 Type 2 diabetes mellitus with diabetic peripheral angiopathy without gangrene; R06.09 Other forms of dyspnea; I65.22 Occlusion and stenosis of left carotid artery; E78.5 Hyperlipidemia, unspecified; E78.00 Pure hypercholesterolemia, unspecified; Z95.1 Presence of aortocoronary bypass graft; R47.81 Slurred speech; I69.328 Other speech and language deficits following cerebral infarction; Z85.6 Personal history of leukemia